=== PATIENT | female | born 1990 | race Caucasian/White ===

== ENCOUNTER 2016-06-14 18:45 | Emergency (ER) | payer BC ==
[2016-06-14 19:07] VITALS: BP 107/82; PULSE 102; TEMP 98.8; BMI 29.6
--- NOTE | 2016-06-14 20:12 | PDOC ---
History of Present Illness - General History Source: Patient Exam Limitations: No Limitations - History of Present Illness Initial Comments: 06/14/16 20:14 The patient is a 25 year old female with no significant past medical history who presents to the ED with 3 days of cold symptoms. Patient reports she developed a fever, chills, nasal congestion, diaphoresis, headaches, and diffuse abdominal pain over the past 3 days. She took tylenol and tried few home remedies with no improvement. The patient denies cough, SOB, and chest pain. The patient denies nausea, vomiting, and diarrhea. Allergies: NKDA Social History: No alcohol, tobacco, or drug use reported. Past Surgical History: None reported PCP: Dr. Jose Johnson <Angy Yu - Last Filed: 06/14/16 20:14> - General History Source: Patient Exam Limitations: No Limitations <Grupo Jalloh - Last Filed: 06/14/16 20:34> - General Chief Complaint: Cold Symptoms Stated Complaint: 33WKS/COLD SYMPTOMS Time Seen by Provider: 06/14/16 19:59 Past History <Angy Yu - Last Filed: 06/14/16 20:14> - Past Medical History Other medical history: NONE - Psycho/Social/Smoking Cessation Hx Anxiety: No Suicidal Ideation: No Smoking Status: No Smoking History: Never smoked Have you smoked in the past 12 months: No Number of Cigarettes Smoked Daily: 0 Information on smoking cessation initiated: No Hx Alcohol Use: No Drug/Substance Use Hx: No Substance Use Type: None Hx Substance Use Treatment: No <Grupo Jalloh - Last Filed: 06/14/16 20:34> - Past Medical History Allergies/Adverse Reactions: Allergies Allergy/AdvReac Type Severity Reaction Status Date / Time No Known Allergies Allergy Verified 06/14/16 18:57 Home Medications: Ambulatory Orders Pnv95/Ferrous Fumarate/FA [ Caplet] 1 each PO DAILY 02/05/16 Review of Systems - Review of Systems Able to Perform ROS?: Yes Comments:: 06/14/16 20:15 +fever, chills, nasal congestion, diaphoresis, headaches, and diffuse abdominal pain Absent: cough, SOB, chest pain, nausea, vomiting, and diarrhea <Angy Yu - Last Filed: 06/14/16 20:14> - Review of Systems Able to Perform ROS?: Yes Is the patient limited Belgian proficient: No Constitutional: Yes: Symptoms Reported, See HPI Respiratory: Yes: Symptoms reported, See HPI Cardiac (ROS): No: Symptoms Reported ABD/GI: No: Symptoms Reported : No: Symptoms Reported Musculoskeletal: Yes: Symptoms Reported, See HPI Integumentary: No: Symptoms Reported Neurological: No: Symptoms reported All Other Systems: Reviewed and Negative <Grupo Jalloh - Last Filed: 06/14/16 20:34> *Physical Exam - Vital Signs Last Vital Signs Temp Pulse Resp BP Pulse Ox 98.8 F 102 H 17 107/82 100 06/14/16 18:57 06/14/16 18:57 06/14/16 18:57 06/14/16 18:57 06/14/16 18:57 <Angy Yu - Last Filed: 06/14/16 20:14> - Vital Signs Last Vital Signs Temp Pulse Resp BP Pulse Ox 98.8 F 102 H 17 107/82 100 06/14/16 18:57 06/14/16 18:57 06/14/16 18:57 06/14/16 18:57 06/14/16 18:57 - Physical Exam General Appearance: Yes: Nourished, Appropriately Dressed. No: Apparent Distress HEENT: positive: EOMI, BENSON, Normal ENT Inspection, Nasal Congestion Neck: positive: Supple. negative: Tender Respiratory/Chest: positive: Lungs Clear, Normal Breath Sounds. negative: Chest Tender, Respiratory Distress Cardiovascular: positive: Regular Rhythm, Regular Rate, Tachycardia Gastrointestinal/Abdominal: positive: Normal Bowel Sounds, Soft. negative: Tender Lymphatic: negative: Adenopathy Musculoskeletal: positive: Normal Inspection. negative: CVA Tenderness, Vertebral Tenderness Integumentary: positive: Normal Color. negative: Rash Neurologic: positive: real estate assistant II-XII NML intact, Fully Oriented, Alert, Normal Mood/ Affect, Normal Response, Motor Strength 5/5 <Grupo Jalloh - Last Filed: 06/14/16 20:34> *DC/Admit/Observation/Transfer - Attestations Scribe Attestion: 06/14/16 20:15 Documentation prepared by Angy Yu, acting as biomedical engineering internship for Grupo Jalloh MD <Angy Yu - Last Filed: 06/14/16 20:14> - Discharge Dispostion Admit: No <Grupo Jalloh - Last Filed: 06/14/16 20:34> Diagnosis at time of Disposition: Viral syndrome - Discharge Dispostion Disposition: HOME Condition at time of disposition: Good - Referrals Referrals: Jose Johnson [Primary Care Provider] - Call tomorrow - Patient Instructions Additional Instructions: PLENTY OF FLUIDS (WATER/GATORADE) MOTRIN/TYLENOL FOR FEVER OR PAIN REST RETURN IF FEVER, VOMITING, SHORTNESS OF BREATH - Post Discharge Activity Work/School Note: Back to Work
== END 2016-06-14 21:03 | disposition home or self-care (01) ==
LOC: JER 18:45
DX: O98.513 Other viral diseases complicating pregnancy, third trimester (principal); B34.8 Other viral infections of unspecified site; Z3A.33 33 weeks gestation of pregnancy
CPT/HCPCS: 99281-25

== ENCOUNTER 2019-08-12 15:43 | Emergency (ER) | payer BC, OTHER ==
[2019-08-12 15:48] VITALS: TEMP 98.4; BMI 27.4
--- NOTE | 2019-08-12 15:56 | PDOC ---
History of Present Illness - General Chief Complaint: Vaginal Bleeding Stated Complaint: 6WKS/ BLEEDING Time Seen by Provider: 08/12/19 15:55 - History of Present Illness Initial Comments: Ms. Carmona is a 28 y/o at approx 8 weeks gestation by LMP (06/13/2019) woman w/no PMH p/w one day of vaginal bleeding and cramping. She reports finding out that she was two days ago via home test, and has an appointment with her associate professor of biology tomorrow. She reports that the bleeding began this AM, first as spotting then becoming more heavy, filling two pads over the course of the day. She endorses abdominal cramping that she describes as similar to a menstrual period. Past History - Past Medical History Allergies/Adverse Reactions: Allergies Allergy/AdvReac Type Severity Reaction Status Date / Time No Known Allergies Allergy Verified 08/12/19 15:48 Home Medications: Ambulatory Orders Pnv95/Iron Fum/Folic Acid [ Caplet] 1 each PO DAILY 02/05/16 Nitrofurantoin Macrocrystal [Nitrofurantoin] 100 mg PO BID 5 Days #10 capsule 08/12/19 COPD: No - Psycho Social/Smoking Cessation Hx Smoking Status: No Smoking History: Never smoked Have you smoked in the past 12 months: No Number of Cigarettes Smoked Daily: 0 Hx Alcohol Use: No Drug/Substance Use Hx: No Substance Use Type: None Hx Substance Use Treatment: No Review of Systems - Review of Systems Able to Perform ROS?: Yes Comments:: GENERAL/CONSTITUTIONAL: No fever or chills. No weakness. HEAD, EYES, EARS, NOSE AND THROAT: No change in vision. No ear pain or discharge. No sore throat. CARDIOVASCULAR: No chest pain or shortness of breath RESPIRATORY: No cough, wheezing, or hemoptysis. GASTROINTESTINAL: No nausea, vomiting, diarrhea or constipation. GENITOURINARY: Abdominal cramping, vaginal bleeding. No dysuria, frequency, or change in urination. MUSCULOSKELETAL: No joint or muscle swelling or pain. No neck or back pain. SKIN: No rash NEUROLOGIC: No headache, vertigo, loss of consciousness, or change in strength/sensation. ENDOCRINE: No increased thirst. No abnormal weight change HEMATOLOGIC/LYMPHATIC: No anemia, easy bleeding, or history of blood clots. ALLERGIC/IMMUNOLOGIC: No hives or skin allergy. *Physical Exam - Vital Signs Last Vital Signs Temp Pulse Resp BP Pulse Ox 98.4 F 99 H 18 125/83 99 08/12/19 15:45 08/12/19 15:45 08/12/19 15:45 08/12/19 15:45 08/12/19 15:45 - Physical Exam GENERAL: Awake, alert, and fully oriented, in no acute distress HEAD: No signs of trauma, normocephalic, atraumatic EYES: PERRLA, EOMI, sclera anicteric, conjunctiva clear ENT: Auricles normal inspection, hearing grossly normal, nares patent, oropharynx clear without exudates. Moist mucosa NECK: Normal ROM, supple, no lymphadenopathy, JVD, or masses LUNGS: No distress, speaks full sentences, clear to auscultation bilaterally HEART: Regular rate and rhythm, normal S1 and S2, no murmurs, rubs or gallops, peripheral pulses normal and equal bilaterally. ABDOMEN: Soft, nontender, normoactive bowel sounds. No guarding, no rebound. No masses EXTREMITIES : Normal inspection, Normal range of motion, no edema. No clubbing or cyanosis NEUROLOGICAL: Cranial nerves II through XII grossly intact. Normal speech, normal gait, no focal sensorimotor deficits SKIN: Warm, Dry, normal turgor, no rashes or lesions noted PELVIC: Normal external genitalia, small amount of dried blood. Cervical os visualized, no active bleeding, lesions, or ulcerations noted. Cervical os closed. ED Treatment Course - LABORATORY CBC & Chemistry Diagram: 08/12/19 15:55 08/12/19 15:55 Medical Decision Making - Medical Decision Making 28F w/no PMH p/w one day of vaginal bleeding, two days after positive test. Ddx threatened, missed, inevitable . Plan: CBC CMP UA Urine culture Beta hcg quant Type and screen US Dispo: Discharge --- UA - 3+ blood, 1+ leuk esterase Plan for abx for asymptomatic bacteruria --- Hcg - ">1000" --- CBC - WBC 10.7 CMP - wnl US - suspected early IUP at approx 5 weeks, although no pole visualized. Results discussed with patient. --- Type and screen - O+, no rhogam indicated at this time Plan for discharge with close associate professor of biology follow up. Discharge - Discharge Information Problems reviewed: Yes Clinical Impression/Diagnosis: Vaginal bleeding affecting early Condition: Stable Disposition: HOME - Admission No - Additional Discharge Information Prescriptions: Nitrofurantoin Macrocrystal [Nitrofurantoin] 100 mg PO BID 5 Days #10 capsule - Follow up/Referral - Patient Discharge Instructions Patient Printed Discharge Instructions: DI for Threatened , DI for Urinary Tract Infection (UTI), DI for Vaginal Bleeding During Additional Instructions: You were seen in the ER for vaginal bleeding during . Your bloodwork was normal. Your ultrasound shows a in the uterus at this time. It is very important to follow up with associate professor of biology as soon as possible, ideally tomorrow. Your urine showed a urinary tract infection, please take the antibiotic as prescribed. Return to the ER if you develop heavy bleeding, more than 3 pads in one hour, chest pain, high fevers, shortness of breath. - Post Discharge Activity Work/Back to School Note: Back to Work
[2019-08-12] MEDS ORDERED: ACETAMINOPHEN 325 MG TABLET (FP) PO ONE (16:32)
[2019-08-12] MEDS ORDERED: ACETAMINOPHEN 325 MG TABLET (FP) ONE (16:46)
--- NOTE | 2019-08-12 16:47 | PDOC ---
Attending Attestation - Resident Resident Name: EmaniNeal - ED Attending Attestation I have performed the following: I have examined & evaluated the patient, The case was reviewed & discussed with the resident, I agree w/resident's findings & plan, Exceptions are as noted - HPI HPI: 08/12/19 16:38 28 y/o female at 8 weeks preg LMP 06-13-20, vaginal bleeding x 1 day with vaginal bleeding and cramping, used two pads today,feels like a period. Pt denies fever, chest pain, sob, dysuria, no trauma. - Physicial Exam PE: 08/12/19 08/12/19 19:11 general: non toxic appearing HEENT: NCAT Lungs:+ bs leonard cta Heart: S1S2 Abd: + bs ab soft no guarding or rigidity Neuro: pt is alert and oriented x3, crystal no focal deficits Vag :Exam done by resident - Medical Decision Making 08/12/19 16:41 28 y/o female here in ED for vaginal bleeding. DD includes but not limited threatned , missed , ectopic , UTI,Will obtain cbc, cmp, type and screen, beta hcg, transvaginal us, IV fluid and reevaluate. Pt's with Beta hcg of 1000, amd us shows pole, pt is clinicaly stable for dc home at this time. Pt's urine is positive for a UTI. Will treat with oral antibiotics.Pt's beta HCG is >1000 maybe indicative of early uti but threatned /missed remain part of the differential. Ectopoic is unlikely,based on US reading from today (however pt's prtner is a triplet). Pt is to f/u with MEDICARE COMPLIANCE AUDITOR in am. Already has schedueled appointment.Pt is aware of differential diagnosis of early /threatned , in evolution and signs and symptoms of ectopic . Pt told to return to ED for heavy vainal bleeding, dizziness, pain or as needed. Pt agreed with this dc plan. Pt was given opportunity to ask and have all questions answered prior to dc home. Pt was not in distress at time of exam, complained of mild menstrual cramps like a period. 08/12/19 19:15 08/12/19 19:15 08/13/19 06:52 Discharge - Discharge Information Problems reviewed: Yes Clinical Impression/Diagnosis: Vaginal bleeding affecting early Condition: Stable Disposition: HOME - Additional Discharge Information Prescriptions: Nitrofurantoin Macrocrystal [Nitrofurantoin] 100 mg PO BID 5 Days #10 capsule - Follow up/Referral - Patient Discharge Instructions Patient Printed Discharge Instructions: DI for Threatened , DI for Urinary Tract Infection (UTI), DI for Vaginal Bleeding During Additional Instructions: You were seen in the ER for vaginal bleeding during . Your bloodwork was normal. Your ultrasound shows a in the uterus at this time. It is very important to follow up with parliamentary librarian as soon as possible, ideally tomorrow. Your urine showed a urinary tract infection, please take the antibiotic as prescribed. Return to the ER if you develop heavy bleeding, more than 3 pads in one hour, chest pain, high fevers, shortness of breath. - Post Discharge Activity Work/Back to School Note: Back to Work
[2019-08-12 17:54] LABS: BASO % 0.6 % (0-2.0); EOS % 3.1 % (0-4.5); HEMATOCRIT 39.1 % (32.4-45.2); LYMPH % 16.2 % (8-40); MCH 29.2 pg (25.7-33.7); MCHC 33.1 g/dl (32.0-36.0); MEAN PLT VOLUME 7.9 fl (7.5-11.1); MONO % 5.1 % (3.8-10.2); PLATELET COUNT 297 K/MM3 (134-434); RBC 4.44 M/mm3 (3.60-5.2); RDW 14.3 % (11.6-15.6); WHITE BLOOD COUNT 10.7 K/mm3 (4.0-10.0)
[2019-08-12 18:33] LABS: ALBUMIN 3.8 g/dl (3.4-5.0); ALK PHOS 74 U/L (45-117); ANION GAP 8 MMOL/L (8-16); BILIRUBIN,TOTAL 0.4 mg/dL (0.2-1); BLOOD UREA NITROGEN 13.7 mg/dL (7-18); CALCIUM 8.4 mg/dL (8.5-10.1); CHLORIDE 110 mmol/L (98-107); CO2 27 mmol/L (21-32); CREATININE 0.6 mg/dL (0.55-1.3); GLUCOSE,RANDOM 70 mg/dL (74-106); POTASSIUM 3.8 mmol/L (3.5-5.1); SGOT/AST 25 U/L (15-37); SGPT/ALT 28 U/L (13-61); SODIUM 145 mmol/L (136-145); TOT PROT 7.3 g/dl (6.4-8.2)
[2019-08-12 18:55] LABS: EPI CELLS 30 /HPF (0-5/HPF); HYALINE CASTS 11 /lpf (0-8); URINE APPEARANCE CLOUDY; URINE BACTERIA 1168 /hpf (NEGATIVE); URINE BILIRUBIN NEGATIVE (NEGATIVE); URINE COLOR ORANGE; URINE GLUCOSE (UA) NEGATIVE (NEGATIVE); URINE KETONE TRACE (NEGATIVE); URINE LEUK ESTERASE 1+ (NEGATIVE); URINE NITRITE NEGATIVE (NEGATIVE); URINE PROTEIN 2+ (NEGATIVE); URINE RBC 1241 /hpf (0-4); URINE WBC 248 /hpf (0-5)
[2019-08-12 19:24] VITALS: BP 118/68; PULSE 73
== END 2019-08-12 19:20 | disposition home or self-care (01) ==
LOC: JER 15:43
DX: O26.891 Other specified pregnancy related conditions, first trimester (principal); O20.0 Threatened abortion; O23.41 Unspecified infection of urinary tract in pregnancy, first trimester; Z3A.01 Less than 8 weeks gestation of pregnancy
CPT/HCPCS: 36415; 76801-TC; 80053; 81003; 84702; 85025; 86850; 86900; 86901; 87086; 99284-25